=== PATIENT | male | born 1995 | race Caucasian/White ===

== ENCOUNTER 2023-05-23 14:39 | Emergency (ER) | payer MEDICAID, SELFPAY ==
[2023-05-23 15:16] VITALS: BP 116/72; BP 122/75; PULSE 79; PULSE 96; RESP 116; TEMP 36.9; O2SAT 95; O2SAT 96; BMI 58.4
--- NOTE | 2023-05-23 15:22 | PC.NURSE ---
SIDE RAILS ARE PADDED.
--- NOTE | 2023-05-23 16:38 | ED_ITS ---
HPI - General Adult General Chief complaint: Seizure Stated complaint: [place] mall per EMS Time Seen by Provider: 05/23/23 16:38 Source: patient, family (patient's father) and EMS Mode of arrival: EMS Limitations: no limitations History of Present Illness HPI narrative: Patient is a 27 year old assigned male at with a history of seizures presenting to the emergency department today after a seizure. Patient states that he has been taking his medication as prescribed but continues to have break through seizures. Patient denies any dizziness, lightheadedness, abdominal pain, nausea, vomiting, fever, chills, blurry vision, double vision, loss of vision, chest pain, difficulty breathing, shortness of breath, back pain, night sweats, pain with urination, increased urinary frequency, increased urinary urgency, blood in his urine or stool, syncope or a near syncopal episode, recent trauma or falls, bowel incontinence, bladder incontinence, bowel retention, bladder retention, or any other complaints at this time. Relieving factors: none Exacerbating factors: none Associated symptoms: denies other symptoms Treatments prior to arrival: none Related Data Allergies Allergy/AdvReac Type Severity Reaction Status Date / Time No Known Allergies Allergy Verified 05/23/23 16:46 Review of Systems Constitutional: Constitutional: Reports no additional constitutional complaints, Denies chills, Denies fever(s) and Denies night sweats Eyes: Eyes: Reports no additional eye complaints, Denies blurry vision, Denies change in vision, Denies diplopia, Denies eye discharge, Denies loss of vision and Denies eye pain ENT: Denies dizziness Cardiovascular: Cardiovascular: Reports no additional cardiovascular complaints, Denies chest pain, Denies lightheadedness, Denies Loss of Consciousness and Denies dyspnea Respiratory: Respiratory: Reports no additional respiratory complaints and Denies dyspnea Gastrointestinal: Gastrointestinal: Reports no additional gastrointestinal complaints, Denies abdominal pain, Denies melena, Denies hematochezia, Denies change in bowel habits and Denies change in stool character Genitourinary: Genitourinary: Reports no additional male genitourinary complaints, Denies hematuria, Denies oliguria, Denies difficulty urinating, Denies dysuria, Denies urinary frequency, Denies urinary hesitancy, Denies urinary incontinence and Denies urinary urgency Musculoskeletal: Musculoskeletal: Reports no additional musculoskeletal complaints, Denies numbness and Denies tingling Neurologic: Denies dizziness, Denies loss of vision, Denies numbness, Reports seizure-like activity and Denies tingling Psychiatric: Psychiatric: Reports no additional psychiatric complaints Endocrine: Endocrine: Reports no additional endocrine complaints Hematologic/Lymphatic: Hematologic/Lymphatic: Reports no additional hematologic/lymphatic complaints Allergic/Immunologic: Allergic/Immunologic: Reports no additional allergic/imm unologic complaints PMFSH Past Medical History Attestation statement: The following information was validated with the patient. (all information was validated with the patient's father) Source: old records reviewed and obtained from family (patient's father provided additional history and confirmed the history provided by the patient) Social History Social History Advance Directives: No Advance Directives Information Provided: No Physical Exam ED Vital Signs: Vital Signs - 24 hr 05/23/23 15:16 Temperature 98.5 F Pulse Rate 79 Respiratory Rate 116 H Blood Pressure 116/72 Pulse Oximetry 95 Oxygen Delivery Method Room Air BMI result Body Mass Index 58.4 Const General: cooperative, no acute distress, alert and awake Nutritional Appearance: well nourished Orientation/consciousness: patient oriented x3 Limitations: no limitations HENMT Head: Yes normal to inspection and Yes atraumatic Ears: hearing grossly normal bilaterally and external ears normal General nose exam: Normal external nose present, no nasal discharge noted and no epistaxis Face and sinus: Yes normal facial exam, No abrasion and No laceration Mouth: Normal oral and palatal mucosa present, no drooling and no muffled voice Eyes General: appearance normal, both eyes and all related structures Periorbital: periorbital findings normal Eyelids: Yes eyelids normal Conjunctivae: conjunctivae normal Pupils: Equal, round and reactive pupils present EOM: EOMs intact bilaterally Neck Neck: Yes normal visual inspection, Yes full ROM and Yes no lymphadenopathy Chest Chest palpation & inspection: normal inspection of the chest Resp Effort & Inspection: normal respiratory effort and able to speak in complete sentences Auscultation: clear to auscultation bilaterally Cardio Rate: regular rate Rhythm: regular rhythm GI Inspection: Yes normal to inspection Palpation (GI): Soft to palpation, not firm, nontender and no guarding Neuro General: patient oriented x3 and moves all extremities Cranial nerves: Yes Equal, round and reactive pupils present Cognition (Neuro): normal cognition Motor exam (neuro): 5/5 motor strength present throughout Sensory Exam: Normal double simultaneous stimulation for sensation Coordination: [id number] test normal Extrem General: Yes normal to inspection, Yes full ROM and Yes capillary refill normal Psych Appearance: grossly normal Mental Status: mental status grossly normal Affect: normal affect Attitude: cooperative Thought process: Normal thought process present Thought content: Normal thought content present Insight: Good insight present (Psych) Medical Decision Making Medical Decision Making MDM Narrative: Patient is a 27 year old assigned male at with a history of seizures presenting to the emergency department today after a breakthrough seizure. Patient's physical exam was unremarkable. Patient refused any labs or imaging. Patient stated that he was just seen at [facility] and does not want anything else done. Patient and his father verbalized understanding of all risks with signing out against medical advice and requested to do so anyway. Differential Diagnosis Differential Diagnoses: The differential diagnosis associated with the presentation includes Seizure Epilepsy Independent Historian Clinical information obtained from an independent historian. History obtained from or confirmed by: Parent (patient's father provided additional history and confirmed the history provided by the patient) and EMS (EMS provided additional history and confirmed the history provided by the patient and his father) Chronic Conditions Patient?s care impacted by: Other (epilepsy) Discharge Plan Discharge Clinical Impression: Epileptic seizure Patient Disposition: Left Against Medical Advice Instructions: Epilepsy (DC) Additional Instructions: You are signing out against medical advice. Please follow up with your neurologist or return to the emergency department. Stand Alone Forms: Against Medical Advice Discharge Date/Time: 05/23/23 17:10 Print Language: Czech
== END 2023-05-23 17:10 | disposition left against medical advice (07) ==
PROVIDERS: Emergency Provider Emergency Medicine
DX: G40.909 Epilepsy, unspecified, not intractable, without status epilepticus (principal)
CPT/HCPCS: 99281